=== PATIENT | female | born 1990 | race Caucasian/White ===

== ENCOUNTER 2023-08-16 20:14 | Emergency (ER) | payer OTHER, SELFPAY ==
[2023-08-16 20:22] VITALS: BP 110/78
--- NOTE | 2023-08-16 21:50 | ED.GENMED ---
History of Present Illness
General
Chief Complaint: Eye Problems
Source: patient
Exam Limitations: none
Time Seen by Provider: 08/16/23 20:53
Nursing documentation reviewed up to this point in time: agreed with
Travel History
Have you had any contact with someone who has COVID-19?: No
Do you have any symptoms of coronavirus? Fever > 100 degrees, chills, cough, shortness of breath, sore throat, loss of taste or smell, muscle aches, or headache?: No
History of Present Illness
History of Present Illness:
Patient is a 32-year-old female who scratched her left upper eyelid while gardening. She wanted to be sure that there was no scratch to her eye. She feels sore on the eyelid and denies any foreign body sensation in the eye itself. Denies any
visual disturbance. Tetanus is up-to-date.
Review of Systems
Review of Systems
Allergies reviewed?: Yes
All Other Systems: ROS reviewed and negative except as documented in HPI and ROS
Constitutional: Reports no symptoms
EENT: Reports other (left upper eyelid scratch )
Musculoskeletal: Reports no symptoms
Skin: Reports no symptoms
Neurological: Reports no symptoms
Psychiatric: Reports no symptoms
Phy Exam
General Physical Exam
General Presentation: no apparent distress
General age: appears stated age
General Skin: warm and dry
General Habitus: normal
General Mental: alert
Eye Exam
Eye Exam: PERRL, EOMI and other (Left upper eyelid with 1/2 cm superficial laceration; no corneal abrasion or dye uptake no Foreign body )
Eye Exam General: PERRL: bilateral and EOM intact: bilateral
Pupil Exam: Bilateral: round and reactive
Neurological Exam
Neurological Exam: alert and oriented x3
Musculoskeletal Exam
Musculoskeletal Exam: full ROM
Skin Exam
Skin Exam: normal color and warm/dry
Psychiatric Exam
Psychiatric Exam: normal mood/affect
Course
Vital Signs
Initial and Last Documented VS:
Initial Vital Signs
Temp Pulse Resp BP Pulse Ox
98.1 F 62 20 110/78 100
08/16/23 20:22 08/16/23 20:22 08/16/23 20:22 08/16/23 20:22 08/16/23 20:22
Last Documented Vital Signs
Temp Pulse Resp BP Pulse Ox
98.1 F 62 20 110/78 100
08/16/23 20:22 08/16/23 20:22 08/16/23 20:22 08/16/23 20:22 08/16/23 20:22
MDM/Problems Addressed
Differential Diagnosis Includes:
Not limited to laceration to eyelid.
MDM/Problems Addressed:
Patient with superficial laceration/abrasion to left upper eyelid no involvement of the eye there is no corneal abrasion or dye uptake. No decreased vision complaints. No eye pain. No other injury patient's tetanus is up-to-date. I personally
irrigated the wound there is no foreign body. Will DC with wound care.
*Critical Care Note
Total Time (30-74mins, 75-104mins- exclusive of procedures): Not Applicable
ED Attending Note
-
Portions of this chart may have been created with voice recognition software.� Occasional wrong word or��sound alike� substitutions may have occurred due to the inherent limitations of voice recognition software.
Discharge Plan
Departure
Patient Disposition: Home (Routine Discharge)
Date of Disposition: 08/16/23
Time of Disposition: 21:54
Patient with high blood pressure during this ER visit?: No
Covid-19: Not Applicable
Discharge Problem:
Laceration
Instructions: Laceration
Referrals:
NONE,* [Family Provider] -
Activity Restrictions/Additional Instructions:
Wash wound with soap and water twice a day apply small layer of antibiotic ointment to the area. See family doctor as needed in the next 2 days for reevaluation .
return if any signs infection increased pain swelling redness red streaking fever chills
Interventions
Interventions:
*Risk Screen - Suicide Last Done: 08/16/23 20:22
*General Assessment Last Done: 08/16/23 20:22
*Neglect/Abuse Screening Last Done: 08/16/23 20:22
ED- Fall Risk Assessment Last Done: 08/16/23 20:22
*ED COVID-19 Vaccine History Last Done: 08/16/23 20:22
Discharge Date and Time
Print Language: [id number]
== END 2023-08-16 22:29 | disposition home or self-care (01) ==
LOC: EMR 20:14
PROVIDERS: EMERGENCY PHYSICIAN Emergency Medicine
DX: S01.112A Laceration without foreign body of left eyelid and periocular area, initial encounter (principal); W22.8XXA Striking against or struck by other objects, initial encounter; Y93.H2 Activity, gardening and landscaping
CPT/HCPCS: 99282